=== PATIENT | male | born 1940 | race African-American/Black ===

== ENCOUNTER 2017-03-11 12:17 | Inpatient (IN) ==
[2017-03-11] MEDS ORDERED: CIPROFLOXACIN INJ 400 MG in PREMIX 1 EACH IV STA (13:15)
[2017-03-11] MEDS ORDERED: CLINDAMYCIN INJ 600 MG in PREMIX 1 EACH IV STA (13:15)
[2017-03-11] MEDS ORDERED: CIPROFLOXACIN 400 MG/200 ML PREMIX IV ONE (13:18)
[2017-03-11] MEDS ORDERED: CLINDAMYCIN INJ 50 ML IV ONE (13:18)
[2017-03-11 13:27] LABS: Basophils % 0.3 % (0.0-0.8); Eosinophils # 0.2 10*3/uL (0.0-0.87); Eosinophils % 1.7 % (0.00-10.9); Hematocrit 37.2 VOL% (42.0-52.0); Hemoglobin 12.5 GM/DL (14.0-18.0); Immature Granulocytes % 0.4 %; Immature Granulocytes Absolute 0.05 #; Lymphocytes # 1.1 10*3/uL (1.4-4.0); Lymphocytes % 8.5 % (21.2-54.2); Mean Corpuscular HGB Conc 33.6 GM/DL (32-36); Mean Corpuscular Hemoglobin 31 PG (27-34); Monocytes # 1.3 10*3/uL (0.11-0.8); Monocytes % 10.3 % (1.7-12.7); Neutrophils # 9.9 10*3/uL (1.4-7.4); Neutrophils % 78.8 % (38.7-73.9); Platelet Count 216 T/CUMM (130-400); Red Cell Distribution Width 13.2 % (9.3-17.3); White Blood Count 12.5 T/CUMM (4-12)
[2017-03-11 13:58] LABS: Albumin 2.9 G/DL (3.4-5.0); Bilirubin,Total 0.6 MG/DL (0.2-1.0); Calcium 8.6 MG/DL (8.5-10.1); Osmolality,Calculated 279.8 MOS/KG (273-304); Potassium 4.6 MMOL/L (3.5-5.1); Total Protein 6.6 G/DL (6.4-8.3)
[2017-03-11] MEDS ORDERED: ONDANSETRON 4 MG/2 ML VIAL IV PRN (15:22)
[2017-03-11] MEDS ORDERED: ACETAMINOPHEN 325 MG TABLET PO PRN (15:22)
[2017-03-11] MEDS: MORPHINE 2 MG/1 ML SYRINGE IV PRN ×2 (17:49→22:25)
[2017-03-11] MEDS: ALBUTEROL/IPRATROPIUM 3 ML NEB RESP TX SCH (18:35)
[2017-03-11] MEDS: CLINDAMYCIN INJ 600 MG in PREMIX 1 EACH IV SCH (20:46)
[2017-03-12] MEDS: DEXTROSE 5% NACL 0.45% 1,000 ML IV SCH ×3 (01:26→18:13)
[2017-03-12] MEDS: ALBUTEROL/IPRATROPIUM 3 ML NEB RESP TX SCH ×4 (02:34→20:16)
[2017-03-12 03:16] LABS: Apearance,Urine CLEAR (Clear); Bilirubin,Urine Negative (Negative); Blood, Urine Moderate mg/dL (Negative); Glucose,Urine (UA) Negative (Negative); Ketones,Urine Negative (Negative); Mucus,Urine Occasional /LPF (Occasional); Nitrite,Urine Negative (Negative); Protein,Urine 100 MG/DL; RBC,Urine 10 /HPF (0-4); Urine Color Yellow (Yellow); Urine Urobilinogen < 2.0 EU/DL (0.2-1.0); WBC,Urine 20 /HPF (0-6)
[2017-03-12] MEDS ORDERED: DIAZEPAM 2 MG TABLET PO ONE (05:00)
[2017-03-12] MEDS ORDERED: IPRATROPIUM 500 MCG/2.5 ML NEB RESP TX ONE (05:00)
[2017-03-12] MEDS ORDERED: FAMOTIDINE 20 MG TABLET PO ONE (05:00)
[2017-03-12] MEDS ORDERED: ALBUTEROL 2.5 MG/3 ML NEB RESP TX ONE (05:00)
[2017-03-12] MEDS: MORPHINE 2 MG/1 ML SYRINGE IV PRN (05:50)
[2017-03-12] MEDS: CLINDAMYCIN INJ 600 MG in PREMIX 1 EACH IV SCH ×3 (05:50→21:21)
[2017-03-12] MEDS: CIPROFLOXACIN INJ 400 MG in PREMIX 1 EACH IV SCH ×2 (06:35→23:49)
[2017-03-12] MEDS ORDERED: BUPIVACAINE 0.25% 50 ML VIAL ONE (07:12)
[2017-03-12] MEDS ORDERED: PROPOFOL 200 MG/20 ML VIAL IV ONE (07:45)
[2017-03-12] MEDS ORDERED: SEVOFLURANE 1 UNIT/15 MINUTE INH ONE (07:45)
[2017-03-12] MEDS ORDERED: HYDROmorphone 2 MG/1 ML VIAL ONE (07:46)
[2017-03-12] MEDS ORDERED: ONDANSETRON 4 MG/2 ML VIAL ONE (07:46)
[2017-03-12] MEDS ORDERED: fentaNYL 100 MCG/2 ML VIAL ONE (07:46)
[2017-03-12] MEDS ORDERED: MIDAZOLAM 2 MG/2 ML VIAL ONE (07:46)
[2017-03-12] MEDS: hydrALAZINE 25 MG TABLET PO SCH (09:10)
[2017-03-12] MEDS: PANTOPRAZOLE 40 MG TABLET PO SCH (09:10)
[2017-03-12] MEDS: CARVEDILOL 6.25 MG TABLET PO SCH ×2 (09:10→21:20)
[2017-03-12] MEDS: ALLOPURINOL 100 MG TABLET PO SCH (09:10)
[2017-03-12 12:10] LABS: Basophils % 0.2 % (0.0-0.8); Eosinophils # 0.2 10*3/uL (0.0-0.87); Eosinophils % 1.3 % (0.00-10.9); Hemoglobin 11.3 GM/DL (14.0-18.0); Immature Granulocytes % 0.3 %; Immature Granulocytes Absolute 0.04 #; Lymphocytes % 8.4 % (21.2-54.2); Mean Corpuscular HGB Conc 33.2 GM/DL (32-36); Mean Corpuscular Hemoglobin 31 PG (27-34); Mean Corpuscular Volume 93.7 FL (87-102); Monocytes # 1.1 10*3/uL (0.11-0.8); Monocytes % 9.3 % (1.7-12.7); Neutrophils # 9.8 10*3/uL (1.4-7.4); Neutrophils % 80.5 % (38.7-73.9); Platelet Count 200 T/CUMM (130-400); Red Blood Count 3.63 MC/CUMM (3.8-5.5); Red Cell Distribution Width 13.2 % (9.3-17.3); White Blood Count 12.2 T/CUMM (4-12)
[2017-03-13] MEDS: ALBUTEROL/IPRATROPIUM 3 ML NEB RESP TX SCH ×2 (01:15→07:32)
[2017-03-13] MEDS: DEXTROSE 5% NACL 0.45% 1,000 ML IV SCH ×3 (02:49→09:47)
[2017-03-13] MEDS: CLINDAMYCIN INJ 600 MG in PREMIX 1 EACH IV SCH (05:15)
[2017-03-13 05:52] LABS: Basophils % 0.2 % (0.0-0.8); Eosinophils # 0.4 10*3/uL (0.0-0.87); Eosinophils % 4.2 % (0.00-10.9); Hematocrit 30.7 VOL% (42.0-52.0); Hemoglobin 10.3 GM/DL (14.0-18.0); Immature Granulocytes % 0.5 %; Immature Granulocytes Absolute 0.05 #; Lymphocytes # 1.1 10*3/uL (1.4-4.0); Lymphocytes % 12.2 % (21.2-54.2); Mean Corpuscular HGB Conc 33.6 GM/DL (32-36); Mean Corpuscular Hemoglobin 31 PG (27-34); Mean Corpuscular Volume 93.3 FL (87-102); Mean Platelet Volume 10.3 FL (9.6-12.0); Monocytes # 0.9 10*3/uL (0.11-0.8); Monocytes % 10.2 % (1.7-12.7); Neutrophils # 6.6 10*3/uL (1.4-7.4); Neutrophils % 72.7 % (38.7-73.9); Platelet Count 197 T/CUMM (130-400); Red Blood Count 3.29 MC/CUMM (3.8-5.5); Red Cell Distribution Width 13.2 % (9.3-17.3); White Blood Count 9.1 T/CUMM (4-12)
[2017-03-13 06:16] LABS: Calcium 7.8 MG/DL (8.5-10.1); Potassium 4.4 MMOL/L (3.5-5.1)
[2017-03-13 06:31] LABS: Band Neutrophils 1 % (0-10); Dohle Bodies Slight; Eosinophils 3 % (0-10); Lymphocytes 12 % (20-55); Macrocytosis 1+; Platelet Estimate Normal; Segmented Neutrophils 77 % (50-85); Total Cells Counted 100
[2017-03-13] MEDS: hydrALAZINE 25 MG TABLET PO SCH (09:45)
[2017-03-13] MEDS: PANTOPRAZOLE 40 MG TABLET PO SCH (09:45)
[2017-03-13] MEDS: ALLOPURINOL 100 MG TABLET PO SCH (09:45)
[2017-03-13] MEDS: CARVEDILOL 6.25 MG TABLET PO SCH (09:45)
[2017-03-13 11:33] VITALS: BP 155/80
== END 2017-03-13 12:42 | disposition home health service (06) | DRG 581 ==
LOC: N.ED 12:17 → N.EDINP 13:24 → N.3E 15:07
PROVIDERS: ADMIT Surgery; ATTEND Surgery